=== PATIENT | male | born 1995 | race African-American/Black ===

== ENCOUNTER 2019-12-29 11:16 | Inpatient (IN) | payer MEDICAID ==
[~2019-12-29] VITALS: Ht 188 cm; Wt 84.8 kg
[2019-12-29 11:51] LABS: BASOPHILS % (AUTO) 1.3 % (0.0-2.0); EOSINOPHILS % (AUTO) 2.7 % (1.0-6.0); HEMATOCRIT 37.9 % (41-53); HEMOGLOBIN 12.4 g/dL (13.5-17.5); LYMPHOCYTES # (AUTO) 2.4 K/uL (1.0-4.8); LYMPHOCYTES % (AUTO) 40.1 % (22.0-44.0); MEAN CORPUSCULAR HEMOGLOBIN 31.1 pg (26.0-34.0); MEAN CORPUSCULAR HGB CONC 32.6 G/dL (31.0-37.0); MEAN CORPUSCULAR VOLUME 95 fL (80-100); MONOCYTES # (AUTO) 0.4 K/uL (0.1-1.0); MONOCYTES % (AUTO) 6.3 % (2.0-9.0); NEUTROPHILS % (AUTO) 49.6 % (40.0-70.0); PLATELET COUNT (AUTO) 646 K/uL (150-450); RED BLOOD CELL COUNT(AUTO) 3.99 MIL/uL (4.50-5.90); RED CELL DISTRIBUTION WIDTH 13.9 % (11.5-14.5)
[2019-12-29 12:11] LABS: ANION GAP 9 mmol/L (8-16); CARBON DIOXIDE 25 mmol/L (22-29); CHLORIDE 103 mmol/L (98-107); GLUCOSE,RANDOM 74 mg/dL (70-110); POTASSIUM 3.3 mmol/L (3.5-5.1); SODIUM SERUM 137 mmol/L (136-145); UREA NITROGEN, BLOOD 20 mg/dL (7-18)
[2019-12-29 12:12] LABS: GLOMERULAR FILTR. RATE CALC > 60 mL/min (>60)
[2019-12-29 12:13] LABS: AMMONIA < 10 umol/L (11-32); TROPONIN I < 0.02 ng/mL (0.00-0.05)
[2019-12-29 12:34] LABS: ALANINE AMINOTRANSFERASE 31 U/L (12-78); ALBUMIN 2.9 g/dL (3.4-5.0); ALKALINE PHOSPHATASE 122 U/L (46-116); ASPARTATE AMINOTRANSFERASE 28 U/L (15-37); BILIRUBIN,TOTAL 0.2 mg/dL (0.1-1.0); CREATINE KINASE, TOTAL ONLY 409 U/L (39-308); TOTAL PROTEIN, SERUM 7.9 g/dL (6.4-8.2)
[2019-12-29 12:35] LABS: ACETAMINOPHEN < 2 mcg/mL (10-30)
[2019-12-29 13:56] LABS: APPEARANCE,URINE CLOUDY (CLEAR); BILIRUBIN,URINE NEGATIVE (NEGATIVE); GLUCOSE, URINE (UA) NEGATIVE (NEGATIVE); KETONES,URINE NEGATIVE (NEGATIVE); LEUKOCYTE ESTERASE ,URINE NEGATIVE (NEGATIVE); NITRATE,URINE NEGATIVE (NEGATIVE); OCCULT BLOOD,URINE NEGATIVE (NEGATIVE); PROTEIN,URINE NEGATIVE (NEGATIVE)
[2019-12-29 14:01] LABS: AMPHET/METH SCREEN,URINE POSITIVE (NEGATIVE); BARBITURATE SCREEN, URINE NEGATIVE (NEGATIVE); BENZODIAZEPINES SCREEN,URINE NEGATIVE (NEGATIVE); CANNABINOID SCREEN,URINE NEGATIVE (NEGATIVE); COCAINE SCREEN,URINE NEGATIVE (NEGATIVE); METHADONE SCREEN, URINE NEGATIVE (NEGATIVE); OPIATE SCREEN,URINE NEGATIVE (NEGATIVE)
[2019-12-29 14:03] LABS: BACTERIA,URINE None Seen /HPF (None Seen); PHENCYCLIDINE SCREEN,URINE NEGATIVE (NEGATIVE); RBC,URINE 0-2 /HPF (0-2); WBC,URINE 0-2 /HPF (0-5)
[2019-12-29] MEDS ORDERED: POTASSIUM CHLORIDE 20 MEQ ER TABLET PO ONE (14:15)
[2019-12-29 20:00] VITALS: BP 132/80
[2019-12-30 02:07] VITALS: BP 128/82
[2019-12-30 04:30] VITALS: BP 122/79
[2019-12-30] MEDS ORDERED: ALBUTEROL SULFATE HFA 90 MCG/PUFF 8 GM INHALER IH PRN (08:00)
[2019-12-30] MEDS ORDERED: NICOTINE 14 MG/24 HOUR PATCH TD PRN (08:00)
[2019-12-30] MEDS ORDERED: LOPERAMIDE HCL 2 MG CAPSULE PO PRN (08:00)
[2019-12-30] MEDS ORDERED: ONDANSETRON HCL 4 MG TABLET PO PRN (08:00)
[2019-12-30] MEDS ORDERED: MAG HYDROX/AL HYDROX/SIMETH ES 30 ML SUSPENSION UDCUP PO PRN (08:00)
[2019-12-30] MEDS ORDERED: PETROLATUM,WHITE 28 GM JELLY TP PRN (08:00)
[2019-12-30] MEDS ORDERED: DOCUSATE SODIUM 100 MG CAPSULE PO PRN (08:00)
[2019-12-30] MEDS ORDERED: IBUPROFEN 400 MG TABLET PO PRN (08:00)
[2019-12-30] MEDS ORDERED: ACETAMINOPHEN 325 MG TABLET PO PRN (08:00)
[2019-12-30] MEDS ORDERED: MAGNESIUM HYDROXIDE SUSPENSION 30 ML UDCUP PO PRN (08:00)
[2019-12-30] MEDS ORDERED: GuaiFENesin/D-METHORPHAN [SUGAR-FREE] 200-20MG/10 ML SYRUP UDCUP PO PRN (08:00)
[2019-12-30] MEDS ORDERED: CloNIDine HCL 0.1 MG TABLET PO PRN (08:00)
[2019-12-30 08:05] VITALS: BP 131/84
[2019-12-30 08:51] LABS: BASOPHILS % (AUTO) 0.9 % (0.0-2.0); EOSINOPHILS % (AUTO) 1.9 % (1.0-6.0); HEMATOCRIT 37.9 % (41-53); HEMOGLOBIN 12.6 g/dL (13.5-17.5); LYMPHOCYTES # (AUTO) 1.4 K/uL (1.0-4.8); LYMPHOCYTES % (AUTO) 33.4 % (22.0-44.0); MEAN CORPUSCULAR HEMOGLOBIN 31.7 pg (26.0-34.0); MEAN CORPUSCULAR HGB CONC 33.3 G/dL (31.0-37.0); MEAN CORPUSCULAR VOLUME 95 fL (80-100); MONOCYTES # (AUTO) 0.2 K/uL (0.1-1.0); NEUTROPHILS # (AUTO) 2.5 K/uL (1.8-7.7); NEUTROPHILS % (AUTO) 58.8 % (40.0-70.0); PLATELET COUNT (AUTO) 669 K/uL (150-450); RED BLOOD CELL COUNT(AUTO) 3.99 MIL/uL (4.50-5.90); RED CELL DISTRIBUTION WIDTH 13.8 % (11.5-14.5)
[2019-12-30 09:17] LABS: ALANINE AMINOTRANSFERASE 33 U/L (12-78); ALBUMIN 2.8 g/dL (3.4-5.0); ALKALINE PHOSPHATASE 113 U/L (46-116); ANION GAP 4 mmol/L (8-16); ASPARTATE AMINOTRANSFERASE 24 U/L (15-37); BILIRUBIN,TOTAL 0.4 mg/dL (0.1-1.0); CALCIUM, TOTAL 9.5 mg/dL (8.8-10.5); CARBON DIOXIDE 29 mmol/L (22-29); CHLORIDE 101 mmol/L (98-107); CHOL/HDL RATIO 2.8 (4.2-7.3); CHOLESTEROL 137 mg/dL (131-200); CREATININE 0.81 mg/dL (0.60-1.30); FREE T4 (FREE THYROXINE) 1.03 ng/dL (0.76-1.46); GLOMERULAR FILTR. RATE CALC > 60 mL/min (>60); GLUCOSE,RANDOM 91 mg/dL (70-110); HDL CHOLESTEROL 49 mg/dL (40-60); LDL CHOL (CALC.) 79 mg/dL (0-130); SODIUM SERUM 134 mmol/L (136-145); TRIGLYCERIDES 46 mg/dL (15-150); UREA NITROGEN, BLOOD 17 mg/dL (7-18)
[2019-12-30 17:09] VITALS: BP 132/82
[2019-12-30] MEDS: OLANZapine 10 MG TABLET PO SCH (20:25)
[2019-12-31 04:26] VITALS: BP 130/72
[2019-12-31 08:12] VITALS: BP 120/67
[2019-12-31] MEDS: OLANZapine 10 MG TABLET PO SCH ×2 (08:34→20:12)
[2019-12-31] MEDS: ASPIRIN 81 MG EC TABLET PO SCH (08:34)
[2019-12-31 16:06] VITALS: BP 128/68
[2019-12-31] MEDS: MUPIROCIN CALCIUM 2% 22 GM OINTMENT NASAL SCH (19:22)
[2020-01-01 04:12] VITALS: BP 122/68
[2020-01-01 04:58] VITALS: BP 117/72
[2020-01-01 08:18] VITALS: BP 112/67
[2020-01-01] MEDS: MUPIROCIN CALCIUM 2% 22 GM OINTMENT NASAL SCH ×2 (08:26→16:46)
[2020-01-01] MEDS: OLANZapine 10 MG TABLET PO SCH ×2 (08:26→20:48)
[2020-01-01] MEDS: ASPIRIN 81 MG EC TABLET PO SCH (08:26)
[2020-01-01] MEDS: LORazepam 2 MG TABLET PO PRN ×2 (09:41→16:46)
[2020-01-01 16:09] VITALS: BP 106/66
[2020-01-01] MEDS: ZOLPIDEM TARTRATE 10 MG TABLET PO PRN (20:48)
[2020-01-02 08:29] VITALS: BP 134/67
[2020-01-02] MEDS: ASPIRIN 81 MG EC TABLET PO SCH (09:48)
[2020-01-02] MEDS: OLANZapine 10 MG TABLET PO SCH ×2 (09:48→20:24)
[2020-01-02] MEDS: MUPIROCIN CALCIUM 2% 22 GM OINTMENT NASAL SCH ×2 (09:49→17:00)
[2020-01-02 16:11] VITALS: BP 138/87
[2020-01-03 01:30] VITALS: BP 102/71
[2020-01-03 08:29] VITALS: BP 130/69
[2020-01-03] MEDS: FOLIC ACID 1 MG TABLET PO SCH (09:19)
[2020-01-03] MEDS: OLANZapine 10 MG TABLET PO SCH ×2 (09:19→20:52)
[2020-01-03] MEDS: MUPIROCIN CALCIUM 2% 22 GM OINTMENT NASAL SCH ×2 (09:19→17:14)
[2020-01-03] MEDS: MULTIVITAMINS WITH MINERALS, THERAPEUTIC TABLET PO SCH (09:19)
[2020-01-03] MEDS: THIAMINE 100 MG TABLET PO SCH (09:19)
[2020-01-03] MEDS: ASPIRIN 81 MG EC TABLET PO SCH (09:19)
[2020-01-03 16:06] VITALS: BP 130/75
[2020-01-04 00:40] VITALS: BP 122/78
[2020-01-04] MEDS: ASPIRIN 81 MG EC TABLET PO SCH (08:54)
[2020-01-04] MEDS: FOLIC ACID 1 MG TABLET PO SCH (08:54)
[2020-01-04] MEDS: THIAMINE 100 MG TABLET PO SCH (08:54)
[2020-01-04] MEDS: OLANZapine 10 MG TABLET PO SCH ×2 (08:55→20:24)
[2020-01-04] MEDS: MULTIVITAMINS WITH MINERALS, THERAPEUTIC TABLET PO SCH (08:55)
[2020-01-04] MEDS: MUPIROCIN CALCIUM 2% 22 GM OINTMENT NASAL SCH ×2 (08:56→16:27)
[2020-01-04 12:59] VITALS: BP 125/75
[2020-01-04 16:09] VITALS: BP 123/66
[2020-01-04] MEDS: LORazepam 2 MG TABLET PO PRN (16:27)
[2020-01-05] MEDS: MULTIVITAMINS WITH MINERALS, THERAPEUTIC TABLET PO SCH (08:46)
[2020-01-05] MEDS: ASPIRIN 81 MG EC TABLET PO SCH (08:46)
[2020-01-05] MEDS: THIAMINE 100 MG TABLET PO SCH (08:46)
[2020-01-05] MEDS: OLANZapine 10 MG TABLET PO SCH ×2 (08:46→20:22)
[2020-01-05] MEDS: FOLIC ACID 1 MG TABLET PO SCH (08:47)
[2020-01-05] MEDS: MUPIROCIN CALCIUM 2% 22 GM OINTMENT NASAL SCH ×2 (08:48→16:36)
[2020-01-05 10:28] VITALS: BP 137/87
[2020-01-05 16:00] VITALS: BP 128/78
[2020-01-05] MEDS: LORazepam 2 MG TABLET PO PRN (16:36)
[2020-01-06 00:04] VITALS: BP 141/75
[2020-01-06] MEDS: OLANZapine 10 MG TABLET PO SCH ×2 (08:04→21:04)
[2020-01-06] MEDS: MULTIVITAMINS WITH MINERALS, THERAPEUTIC TABLET PO SCH (08:04)
[2020-01-06] MEDS: ASPIRIN 81 MG EC TABLET PO SCH (08:04)
[2020-01-06] MEDS: FOLIC ACID 1 MG TABLET PO SCH (08:05)
[2020-01-06] MEDS: THIAMINE 100 MG TABLET PO SCH (08:05)
[2020-01-06 08:43] VITALS: BP 109/75
[2020-01-06] MEDS: LORazepam 2 MG TABLET PO PRN (15:52)
[2020-01-06 16:08] VITALS: BP 122/63
[2020-01-07 00:37] VITALS: BP 109/66
[2020-01-07] MEDS: ASPIRIN 81 MG EC TABLET PO SCH (08:35)
[2020-01-07] MEDS: OLANZapine 10 MG TABLET PO SCH ×2 (08:35→21:49)
[2020-01-07] MEDS: LORazepam 2 MG TABLET PO PRN (08:35)
[2020-01-07] MEDS: MULTIVITAMINS WITH MINERALS, THERAPEUTIC TABLET PO SCH (08:35)
[2020-01-07] MEDS: FOLIC ACID 1 MG TABLET PO SCH (08:35)
[2020-01-07] MEDS: THIAMINE 100 MG TABLET PO SCH (08:35)
[2020-01-07 08:55] VITALS: BP 97/60
[2020-01-07 16:10] VITALS: BP 102/76
[2020-01-08 01:22] VITALS: BP 124/68
[2020-01-08 08:25] VITALS: BP 120/67
[2020-01-08] MEDS: OLANZapine 10 MG TABLET PO SCH ×2 (09:23→20:14)
[2020-01-08] MEDS: FOLIC ACID 1 MG TABLET PO SCH (09:23)
[2020-01-08] MEDS: ASPIRIN 81 MG EC TABLET PO SCH (09:24)
[2020-01-08] MEDS: THIAMINE 100 MG TABLET PO SCH (09:24)
[2020-01-08] MEDS: MULTIVITAMINS WITH MINERALS, THERAPEUTIC TABLET PO SCH (09:24)
[2020-01-08 16:10] VITALS: BP 110/65
[2020-01-08] MEDS: LORazepam 2 MG TABLET PO PRN (20:14)
[2020-01-08] MEDS: ZOLPIDEM TARTRATE 10 MG TABLET PO PRN (20:14)
[2020-01-09 04:27] VITALS: BP 115/64
[2020-01-09 08:19] VITALS: BP 122/64
[2020-01-09] MEDS: FOLIC ACID 1 MG TABLET PO SCH (09:03)
[2020-01-09] MEDS: ASPIRIN 81 MG EC TABLET PO SCH (09:03)
[2020-01-09] MEDS: MULTIVITAMINS WITH MINERALS, THERAPEUTIC TABLET PO SCH (09:03)
[2020-01-09] MEDS: THIAMINE 100 MG TABLET PO SCH (09:03)
[2020-01-09] MEDS: OLANZapine 10 MG TABLET PO SCH ×2 (09:03→20:41)
[2020-01-09 16:00] VITALS: BP 134/82
[2020-01-09] MEDS: LORazepam 2 MG TABLET PO PRN (16:39)
[2020-01-10 04:04] VITALS: BP 124/62
[2020-01-10 08:16] VITALS: BP 118/62
[2020-01-10] MEDS: FOLIC ACID 1 MG TABLET PO SCH (08:56)
[2020-01-10] MEDS: MULTIVITAMINS WITH MINERALS, THERAPEUTIC TABLET PO SCH (08:56)
[2020-01-10] MEDS: ASPIRIN 81 MG EC TABLET PO SCH (08:56)
[2020-01-10] MEDS: OLANZapine 10 MG TABLET PO SCH ×2 (08:56→20:45)
[2020-01-10] MEDS: THIAMINE 100 MG TABLET PO SCH (08:56)
[2020-01-10 16:14] VITALS: BP 116/74
[2020-01-10] MEDS: LORazepam 2 MG TABLET PO PRN (16:39)
[2020-01-11 01:44] VITALS: BP 114/62
[2020-01-11 08:30] VITALS: BP 153/98
[2020-01-11] MEDS: OLANZapine 10 MG TABLET PO SCH ×2 (08:57→20:25)
[2020-01-11] MEDS: FOLIC ACID 1 MG TABLET PO SCH (08:57)
[2020-01-11] MEDS: ASPIRIN 81 MG EC TABLET PO SCH (08:58)
[2020-01-11] MEDS: THIAMINE 100 MG TABLET PO SCH (08:58)
[2020-01-11] MEDS: MULTIVITAMINS WITH MINERALS, THERAPEUTIC TABLET PO SCH (08:58)
[2020-01-11 16:14] VITALS: BP 100/60
[2020-01-11] MEDS: LORazepam 2 MG TABLET PO PRN (16:26)
[2020-01-12 04:10] VITALS: BP 123/78
[2020-01-12 08:15] VITALS: BP 114/81
[2020-01-12] MEDS: OLANZapine 10 MG TABLET PO SCH ×2 (08:15→20:32)
[2020-01-12] MEDS: THIAMINE 100 MG TABLET PO SCH (08:15)
[2020-01-12] MEDS: FOLIC ACID 1 MG TABLET PO SCH (08:15)
[2020-01-12] MEDS: MULTIVITAMINS WITH MINERALS, THERAPEUTIC TABLET PO SCH (08:16)
[2020-01-12] MEDS: ASPIRIN 81 MG EC TABLET PO SCH (08:16)
[2020-01-12 16:17] VITALS: BP 131/64
[2020-01-13 05:02] VITALS: BP 123/67
[2020-01-13 08:22] VITALS: BP 125/72
[2020-01-13] MEDS: FOLIC ACID 1 MG TABLET PO SCH (08:42)
[2020-01-13] MEDS: THIAMINE 100 MG TABLET PO SCH (08:42)
[2020-01-13] MEDS: OLANZapine 10 MG TABLET PO SCH ×2 (08:42→20:12)
[2020-01-13] MEDS: MULTIVITAMINS WITH MINERALS, THERAPEUTIC TABLET PO SCH (08:42)
[2020-01-13] MEDS: ASPIRIN 81 MG EC TABLET PO SCH (08:42)
[2020-01-13 16:18] VITALS: BP 112/68
[2020-01-13] MEDS: LORazepam 2 MG TABLET PO PRN (16:49)
[2020-01-14 01:51] VITALS: BP 107/62
[2020-01-14] MEDS: MULTIVITAMINS WITH MINERALS, THERAPEUTIC TABLET PO SCH (08:14)
[2020-01-14] MEDS: FOLIC ACID 1 MG TABLET PO SCH (08:14)
[2020-01-14] MEDS: THIAMINE 100 MG TABLET PO SCH (08:14)
[2020-01-14] MEDS: OLANZapine 10 MG TABLET PO SCH ×2 (08:14→20:18)
[2020-01-14] MEDS: ASPIRIN 81 MG EC TABLET PO SCH (08:15)
[2020-01-14] MEDS: LORazepam 2 MG TABLET PO PRN ×2 (08:24→16:01)
[2020-01-14 09:35] VITALS: BP 113/79
[2020-01-14 16:35] VITALS: BP 131/72
[2020-01-14] MEDS: ZOLPIDEM TARTRATE 10 MG TABLET PO PRN (20:18)
[2020-01-15 04:45] VITALS: BP 111/77
[2020-01-15] MEDS: OLANZapine 10 MG TABLET PO SCH ×2 (08:14→20:26)
[2020-01-15] MEDS: MULTIVITAMINS WITH MINERALS, THERAPEUTIC TABLET PO SCH (08:14)
[2020-01-15] MEDS: FOLIC ACID 1 MG TABLET PO SCH (08:14)
[2020-01-15] MEDS: ASPIRIN 81 MG EC TABLET PO SCH (08:14)
[2020-01-15] MEDS: THIAMINE 100 MG TABLET PO SCH (08:15)
[2020-01-15 08:21] VITALS: BP 76/116
[2020-01-15 16:11] VITALS: BP 136/70
[2020-01-15] MEDS: ZOLPIDEM TARTRATE 10 MG TABLET PO PRN (20:26)
[2020-01-16 01:25] VITALS: BP 114/77
[2020-01-16] MEDS: ASPIRIN 81 MG EC TABLET PO SCH (08:25)
[2020-01-16] MEDS: THIAMINE 100 MG TABLET PO SCH (08:25)
[2020-01-16] MEDS: MULTIVITAMINS WITH MINERALS, THERAPEUTIC TABLET PO SCH (08:25)
[2020-01-16] MEDS: FOLIC ACID 1 MG TABLET PO SCH (08:25)
[2020-01-16] MEDS: OLANZapine 10 MG TABLET PO SCH ×2 (08:25→21:08)
[2020-01-16 09:00] VITALS: BP 143/92
[2020-01-16 16:15] VITALS: BP 127/71
[2020-01-16] MEDS: ZOLPIDEM TARTRATE 10 MG TABLET PO PRN (21:08)
[2020-01-17 03:01] VITALS: BP 102/63
[2020-01-17 08:13] VITALS: BP 114/66
[2020-01-17] MEDS: ASPIRIN 81 MG EC TABLET PO SCH (08:23)
[2020-01-17] MEDS: OLANZapine 10 MG TABLET PO SCH ×2 (08:23→20:49)
[2020-01-17] MEDS: FOLIC ACID 1 MG TABLET PO SCH (08:23)
[2020-01-17] MEDS: THIAMINE 100 MG TABLET PO SCH (08:24)
[2020-01-17] MEDS: MULTIVITAMINS WITH MINERALS, THERAPEUTIC TABLET PO SCH (08:24)
[2020-01-17 16:15] VITALS: BP 115/97
[2020-01-17] MEDS: ZOLPIDEM TARTRATE 10 MG TABLET PO PRN (20:53)
[2020-01-18 04:24] VITALS: BP 124/76
[2020-01-18 08:19] VITALS: BP 125/72
[2020-01-18] MEDS: THIAMINE 100 MG TABLET PO SCH (08:24)
[2020-01-18] MEDS: MULTIVITAMINS WITH MINERALS, THERAPEUTIC TABLET PO SCH (08:25)
[2020-01-18] MEDS: OLANZapine 10 MG TABLET PO SCH ×2 (08:25→20:57)
[2020-01-18] MEDS: ASPIRIN 81 MG EC TABLET PO SCH (08:25)
[2020-01-18] MEDS: FOLIC ACID 1 MG TABLET PO SCH (08:25)
[2020-01-18 16:12] VITALS: BP 108/66
[2020-01-18] MEDS: ZOLPIDEM TARTRATE 10 MG TABLET PO PRN (21:10)
[2020-01-19 03:36] VITALS: BP 102/63
[2020-01-19 08:31] VITALS: BP 120/72
[2020-01-19] MEDS: ASPIRIN 81 MG EC TABLET PO SCH (08:42)
[2020-01-19] MEDS: THIAMINE 100 MG TABLET PO SCH (08:42)
[2020-01-19] MEDS: MULTIVITAMINS WITH MINERALS, THERAPEUTIC TABLET PO SCH (08:42)
[2020-01-19] MEDS: FOLIC ACID 1 MG TABLET PO SCH (08:42)
[2020-01-19] MEDS: OLANZapine 10 MG TABLET PO SCH ×2 (08:42→20:32)
[2020-01-19 16:10] VITALS: BP 106/68
[2020-01-20 02:21] VITALS: BP 122/79
[2020-01-20] MEDS: THIAMINE 100 MG TABLET PO SCH (08:08)
[2020-01-20] MEDS: FOLIC ACID 1 MG TABLET PO SCH (08:08)
[2020-01-20] MEDS: OLANZapine 10 MG TABLET PO SCH ×2 (08:08→20:41)
[2020-01-20] MEDS: MULTIVITAMINS WITH MINERALS, THERAPEUTIC TABLET PO SCH (08:08)
[2020-01-20] MEDS: ASPIRIN 81 MG EC TABLET PO SCH (08:09)
[2020-01-20 08:33] VITALS: BP 135/78
[2020-01-20 16:13] VITALS: BP 132/68
[2020-01-20] MEDS: ZOLPIDEM TARTRATE 10 MG TABLET PO PRN (20:41)
[2020-01-21 00:51] VITALS: BP 124/64
[2020-01-21] MEDS: THIAMINE 100 MG TABLET PO SCH (08:17)
[2020-01-21] MEDS: ASPIRIN 81 MG EC TABLET PO SCH (08:17)
[2020-01-21] MEDS: FOLIC ACID 1 MG TABLET PO SCH (08:17)
[2020-01-21] MEDS: MULTIVITAMINS WITH MINERALS, THERAPEUTIC TABLET PO SCH (08:17)
[2020-01-21] MEDS: OLANZapine 10 MG TABLET PO SCH ×2 (08:17→20:51)
[2020-01-21 08:40] VITALS: BP 131/82
[2020-01-21 16:14] VITALS: BP 132/78
[2020-01-21] MEDS: LORazepam 2 MG TABLET PO PRN (17:19)
[2020-01-21] MEDS: ZOLPIDEM TARTRATE 10 MG TABLET PO PRN (20:51)
[2020-01-22 00:45] VITALS: BP 120/65
[2020-01-22 08:30] VITALS: BP 110/60
[2020-01-22] MEDS: ASPIRIN 81 MG EC TABLET PO SCH (08:43)
[2020-01-22] MEDS: FOLIC ACID 1 MG TABLET PO SCH (08:43)
[2020-01-22] MEDS: MULTIVITAMINS WITH MINERALS, THERAPEUTIC TABLET PO SCH (08:43)
[2020-01-22] MEDS: OLANZapine 10 MG TABLET PO SCH ×2 (08:43→20:38)
[2020-01-22] MEDS: THIAMINE 100 MG TABLET PO SCH (08:44)
[2020-01-22 16:24] VITALS: BP 111/66
[2020-01-22] MEDS: LORazepam 2 MG TABLET PO PRN (16:46)
[2020-01-23 03:49] VITALS: BP 105/67
[2020-01-23] MEDS: THIAMINE 100 MG TABLET PO SCH (08:22)
[2020-01-23] MEDS: ASPIRIN 81 MG EC TABLET PO SCH (08:22)
[2020-01-23] MEDS: FOLIC ACID 1 MG TABLET PO SCH (08:22)
[2020-01-23] MEDS: MULTIVITAMINS WITH MINERALS, THERAPEUTIC TABLET PO SCH (08:22)
[2020-01-23] MEDS: OLANZapine 10 MG TABLET PO SCH ×2 (08:22→20:12)
[2020-01-23 08:24] VITALS: BP 134/70
[2020-01-23] MEDS: LORazepam 2 MG TABLET PO PRN ×2 (14:25→18:26)
[2020-01-23] MEDS: HALOPERIDOL 5 MG TABLET PO PRN (14:25)
[2020-01-23 16:24] VITALS: BP 131/75
[2020-01-23 19:30] VITALS: BP 95/56
[2020-01-24 04:29] VITALS: BP 129/73
[2020-01-24 08:40] VITALS: BP 95/56
[2020-01-24] MEDS: OLANZapine 10 MG TABLET PO SCH ×2 (09:04→20:18)
[2020-01-24] MEDS: FOLIC ACID 1 MG TABLET PO SCH (09:04)
[2020-01-24] MEDS: MULTIVITAMINS WITH MINERALS, THERAPEUTIC TABLET PO SCH (09:04)
[2020-01-24] MEDS: ASPIRIN 81 MG EC TABLET PO SCH (09:04)
[2020-01-24] MEDS: THIAMINE 100 MG TABLET PO SCH (09:04)
[2020-01-24] MEDS: LORazepam 2 MG TABLET PO PRN ×2 (14:39→20:18)
[2020-01-24 16:17] VITALS: BP 112/69
[2020-01-24] MEDS: ZOLPIDEM TARTRATE 10 MG TABLET PO PRN (21:16)
[2020-01-25 00:15] VITALS: BP 107/68
[2020-01-25] MEDS: LORazepam 2 MG TABLET PO PRN ×3 (03:58→16:34)
[2020-01-25] MEDS: HALOPERIDOL 5 MG TABLET PO PRN (06:28)
[2020-01-25] MEDS: OLANZapine 10 MG TABLET PO SCH ×2 (08:31→20:49)
[2020-01-25] MEDS: MULTIVITAMINS WITH MINERALS, THERAPEUTIC TABLET PO SCH (08:31)
[2020-01-25] MEDS: FOLIC ACID 1 MG TABLET PO SCH (08:32)
[2020-01-25] MEDS: ASPIRIN 81 MG EC TABLET PO SCH (08:32)
[2020-01-25] MEDS: THIAMINE 100 MG TABLET PO SCH (08:33)
[2020-01-25 09:00] VITALS: BP 98/69
[2020-01-25] MEDS ORDERED: TUBERCULIN, PURIFIED PROTEIN DERIVATIVE 5 TU/0.1 ML SYRINGE ID ONE (13:00)
[2020-01-25 16:00] VITALS: BP 123/85
[2020-01-25] MEDS: ZOLPIDEM TARTRATE 10 MG TABLET PO PRN (20:49)
[2020-01-26 01:55] VITALS: BP 137/56
[2020-01-26] MEDS: ASPIRIN 81 MG EC TABLET PO SCH (08:11)
[2020-01-26] MEDS: THIAMINE 100 MG TABLET PO SCH (08:11)
[2020-01-26] MEDS: FOLIC ACID 1 MG TABLET PO SCH (08:11)
[2020-01-26] MEDS: MULTIVITAMINS WITH MINERALS, THERAPEUTIC TABLET PO SCH (08:11)
[2020-01-26] MEDS: OLANZapine 10 MG TABLET PO SCH ×2 (08:11→20:33)
[2020-01-26] MEDS: LORazepam 2 MG TABLET PO PRN ×2 (08:13→17:48)
[2020-01-26 08:14] VITALS: BP 128/76
[2020-01-26 16:24] VITALS: BP 126/68
[2020-01-27 00:11] VITALS: BP 117/77
[2020-01-27] MEDS: ZOLPIDEM TARTRATE 10 MG TABLET PO PRN ×2 (00:22→21:43)
[2020-01-27 08:14] VITALS: BP 132/80
[2020-01-27] MEDS: OLANZapine 10 MG TABLET PO SCH ×2 (08:15→20:03)
[2020-01-27] MEDS: LORazepam 2 MG TABLET PO PRN ×3 (08:15→18:04)
[2020-01-27] MEDS: FOLIC ACID 1 MG TABLET PO SCH (08:15)
[2020-01-27] MEDS: MULTIVITAMINS WITH MINERALS, THERAPEUTIC TABLET PO SCH (08:15)
[2020-01-27] MEDS: THIAMINE 100 MG TABLET PO SCH (08:15)
[2020-01-27] MEDS: ASPIRIN 81 MG EC TABLET PO SCH (08:15)
[2020-01-27 16:19] VITALS: BP 117/70
[2020-01-28 05:24] VITALS: BP 127/84
[2020-01-28 08:14] VITALS: BP 114/67
[2020-01-28] MEDS: THIAMINE 100 MG TABLET PO SCH (08:25)
[2020-01-28] MEDS: LORazepam 2 MG TABLET PO PRN ×2 (08:25→15:49)
[2020-01-28] MEDS: ASPIRIN 81 MG EC TABLET PO SCH (08:25)
[2020-01-28] MEDS: OLANZapine 10 MG TABLET PO SCH ×2 (08:25→20:08)
[2020-01-28] MEDS: FOLIC ACID 1 MG TABLET PO SCH (08:25)
[2020-01-28] MEDS: MULTIVITAMINS WITH MINERALS, THERAPEUTIC TABLET PO SCH (08:25)
[2020-01-28 16:15] VITALS: BP 130/84
[2020-01-29 04:40] VITALS: BP 110/72
[2020-01-29 08:21] VITALS: BP 129/67
[2020-01-29] MEDS: MULTIVITAMINS WITH MINERALS, THERAPEUTIC TABLET PO SCH (08:38)
[2020-01-29] MEDS: THIAMINE 100 MG TABLET PO SCH (08:38)
[2020-01-29] MEDS: FOLIC ACID 1 MG TABLET PO SCH (08:38)
[2020-01-29] MEDS: OLANZapine 10 MG TABLET PO SCH ×2 (08:38→20:43)
[2020-01-29] MEDS: ASPIRIN 81 MG EC TABLET PO SCH (08:38)
[2020-01-29] MEDS: LORazepam 2 MG TABLET PO PRN (09:04)
[2020-01-29 16:08] VITALS: BP 106/63
[2020-01-30 00:08] VITALS: BP 101/63
[2020-01-30 08:22] VITALS: BP 117/90
[2020-01-30] MEDS: MULTIVITAMINS WITH MINERALS, THERAPEUTIC TABLET PO SCH (09:05)
[2020-01-30] MEDS: THIAMINE 100 MG TABLET PO SCH (09:05)
[2020-01-30] MEDS: FOLIC ACID 1 MG TABLET PO SCH (09:05)
[2020-01-30] MEDS: ASPIRIN 81 MG EC TABLET PO SCH (09:05)
[2020-01-30] MEDS: OLANZapine 10 MG TABLET PO SCH ×2 (09:05→20:33)
[2020-01-30] MEDS: LORazepam 2 MG TABLET PO PRN (14:08)
[2020-01-30 16:06] VITALS: BP 112/69
[2020-01-30] MEDS: ZOLPIDEM TARTRATE 10 MG TABLET PO PRN (20:57)
[2020-01-31 02:47] VITALS: BP 103/59
[2020-01-31 08:13] VITALS: BP 110/65
[2020-01-31] MEDS: OLANZapine 10 MG TABLET PO SCH ×2 (08:25→20:15)
[2020-01-31] MEDS: MULTIVITAMINS WITH MINERALS, THERAPEUTIC TABLET PO SCH (08:25)
[2020-01-31] MEDS: THIAMINE 100 MG TABLET PO SCH (08:25)
[2020-01-31] MEDS: LORazepam 2 MG TABLET PO PRN ×2 (08:26→15:08)
[2020-01-31] MEDS: FOLIC ACID 1 MG TABLET PO SCH (08:26)
[2020-01-31] MEDS: ASPIRIN 81 MG EC TABLET PO SCH (08:26)
[2020-01-31 16:06] VITALS: BP 110/68
[2020-01-31] MEDS: ZOLPIDEM TARTRATE 10 MG TABLET PO PRN (20:15)
[2020-02-01 01:41] VITALS: BP 114/61
[2020-02-01 08:20] VITALS: BP 110/78
[2020-02-01] MEDS: OLANZapine 10 MG TABLET PO SCH ×2 (08:28→20:34)
[2020-02-01] MEDS: ASPIRIN 81 MG EC TABLET PO SCH (08:28)
[2020-02-01] MEDS: MULTIVITAMINS WITH MINERALS, THERAPEUTIC TABLET PO SCH (08:29)
[2020-02-01] MEDS: THIAMINE 100 MG TABLET PO SCH (08:29)
[2020-02-01] MEDS: FOLIC ACID 1 MG TABLET PO SCH (08:29)
[2020-02-01 16:42] VITALS: BP 109/61
[2020-02-01] MEDS: LORazepam 2 MG TABLET PO PRN (16:43)
[2020-02-01] MEDS: ZOLPIDEM TARTRATE 10 MG TABLET PO PRN (20:34)
[2020-02-02 01:56] VITALS: BP 114/75
[2020-02-02] MEDS: MULTIVITAMINS WITH MINERALS, THERAPEUTIC TABLET PO SCH (08:05)
[2020-02-02] MEDS: FOLIC ACID 1 MG TABLET PO SCH (08:06)
[2020-02-02] MEDS: OLANZapine 10 MG TABLET PO SCH ×2 (08:06→20:27)
[2020-02-02] MEDS: THIAMINE 100 MG TABLET PO SCH (08:06)
[2020-02-02] MEDS: ASPIRIN 81 MG EC TABLET PO SCH (08:06)
[2020-02-02] MEDS: LORazepam 2 MG TABLET PO PRN ×2 (08:06→16:16)
[2020-02-02 08:08] VITALS: BP 113/73
[2020-02-02 16:10] VITALS: BP 122/76
[2020-02-02] MEDS: ZOLPIDEM TARTRATE 10 MG TABLET PO PRN (20:27)
[2020-02-03 00:31] VITALS: BP 106/73
[2020-02-03] MEDS: ASPIRIN 81 MG EC TABLET PO SCH (08:56)
[2020-02-03] MEDS: MULTIVITAMINS WITH MINERALS, THERAPEUTIC TABLET PO SCH (08:56)
[2020-02-03] MEDS: LORazepam 2 MG TABLET PO PRN ×2 (08:56→16:17)
[2020-02-03] MEDS: OLANZapine 10 MG TABLET PO SCH ×2 (08:56→20:18)
[2020-02-03] MEDS: FOLIC ACID 1 MG TABLET PO SCH (08:56)
[2020-02-03] MEDS: THIAMINE 100 MG TABLET PO SCH (08:56)
[2020-02-03 09:19] VITALS: BP 138/60
[2020-02-03 16:15] VITALS: BP 124/82
[2020-02-03] MEDS: HALOPERIDOL 5 MG TABLET PO PRN (19:12)
[2020-02-04 00:07] VITALS: BP 122/78
[2020-02-04] MEDS: FOLIC ACID 1 MG TABLET PO SCH (08:19)
[2020-02-04] MEDS: OLANZapine 10 MG TABLET PO SCH ×2 (08:19→20:02)
[2020-02-04] MEDS: MULTIVITAMINS WITH MINERALS, THERAPEUTIC TABLET PO SCH (08:20)
[2020-02-04] MEDS: ASPIRIN 81 MG EC TABLET PO SCH (08:20)
[2020-02-04] MEDS: LORazepam 2 MG TABLET PO PRN ×3 (08:20→18:36)
[2020-02-04] MEDS: THIAMINE 100 MG TABLET PO SCH (08:20)
[2020-02-04 08:22] VITALS: BP 140/72
[2020-02-04] MEDS ORDERED: HYDR-4031 PO (11:44)
[2020-02-04 16:13] VITALS: BP 122/80
[2020-02-04] MEDS: ZOLPIDEM TARTRATE 10 MG TABLET PO PRN (20:02)
[2020-02-05 00:14] VITALS: BP 120/78
[2020-02-05] MEDS: MULTIVITAMINS WITH MINERALS, THERAPEUTIC TABLET PO SCH (08:26)
[2020-02-05] MEDS: FOLIC ACID 1 MG TABLET PO SCH (08:26)
[2020-02-05] MEDS: OLANZapine 10 MG TABLET PO SCH ×2 (08:27→20:35)
[2020-02-05] MEDS: ASPIRIN 81 MG EC TABLET PO SCH (08:27)
[2020-02-05] MEDS: THIAMINE 100 MG TABLET PO SCH (08:27)
[2020-02-05] MEDS: LORazepam 2 MG TABLET PO PRN ×2 (08:27→16:24)
[2020-02-05 08:34] VITALS: BP 119/65
[2020-02-05 16:14] VITALS: BP 114/72
[2020-02-05] MEDS: HALOPERIDOL 5 MG TABLET PO PRN (16:24)
[2020-02-05] MEDS: ZOLPIDEM TARTRATE 10 MG TABLET PO PRN (20:39)
[2020-02-06 03:47] VITALS: BP 116/70
[2020-02-06] MEDS: ASPIRIN 81 MG EC TABLET PO SCH (08:36)
[2020-02-06] MEDS: FOLIC ACID 1 MG TABLET PO SCH (08:36)
[2020-02-06] MEDS: OLANZapine 10 MG TABLET PO SCH ×2 (08:36→20:46)
[2020-02-06] MEDS: THIAMINE 100 MG TABLET PO SCH (08:36)
[2020-02-06] MEDS: MULTIVITAMINS WITH MINERALS, THERAPEUTIC TABLET PO SCH (08:36)
[2020-02-06 09:00] VITALS: BP 106/71
[2020-02-06] MEDS: LORazepam 2 MG TABLET PO PRN ×2 (09:06→18:22)
[2020-02-06 16:22] VITALS: BP 124/76
[2020-02-06] MEDS: QUEtiapine FUMARATE 25 MG TABLET PO SCH (20:46)
[2020-02-07 03:00] VITALS: BP 108/61
[2020-02-07 08:00] VITALS: BP 111/68
[2020-02-07] MEDS: MULTIVITAMINS WITH MINERALS, THERAPEUTIC TABLET PO SCH (09:34)
[2020-02-07] MEDS: ASPIRIN 81 MG EC TABLET PO SCH (09:34)
[2020-02-07] MEDS: FOLIC ACID 1 MG TABLET PO SCH (09:34)
[2020-02-07] MEDS: THIAMINE 100 MG TABLET PO SCH (09:34)
[2020-02-07] MEDS: OLANZapine 10 MG TABLET PO SCH ×2 (09:34→20:51)
[2020-02-07] MEDS: LORazepam 2 MG TABLET PO PRN ×2 (13:41→18:18)
[2020-02-07 16:15] VITALS: BP 123/77
[2020-02-07] MEDS: QUEtiapine FUMARATE 25 MG TABLET PO SCH (20:51)
[2020-02-07] MEDS: ZOLPIDEM TARTRATE 10 MG TABLET PO PRN (20:51)
[2020-02-08 04:10] VITALS: BP 118/70
[2020-02-08 08:26] VITALS: BP 140/74
[2020-02-08] MEDS: FOLIC ACID 1 MG TABLET PO SCH (08:44)
[2020-02-08] MEDS: OLANZapine 10 MG TABLET PO SCH ×2 (08:44→20:36)
[2020-02-08] MEDS: ASPIRIN 81 MG EC TABLET PO SCH (08:44)
[2020-02-08] MEDS: MULTIVITAMINS WITH MINERALS, THERAPEUTIC TABLET PO SCH (08:44)
[2020-02-08] MEDS: THIAMINE 100 MG TABLET PO SCH (08:44)
[2020-02-08] MEDS: LORazepam 2 MG TABLET PO PRN (16:34)
[2020-02-08 16:42] VITALS: BP 132/64
[2020-02-08] MEDS: QUEtiapine FUMARATE 25 MG TABLET PO SCH (20:37)
[2020-02-08] MEDS: ZOLPIDEM TARTRATE 10 MG TABLET PO PRN (20:37)
[2020-02-09 00:33] VITALS: BP 130/73
[2020-02-09] MEDS: THIAMINE 100 MG TABLET PO SCH (08:05)
[2020-02-09] MEDS: FOLIC ACID 1 MG TABLET PO SCH (08:05)
[2020-02-09] MEDS: MULTIVITAMINS WITH MINERALS, THERAPEUTIC TABLET PO SCH (08:05)
[2020-02-09] MEDS: OLANZapine 10 MG TABLET PO SCH ×2 (08:05→20:54)
[2020-02-09] MEDS: ASPIRIN 81 MG EC TABLET PO SCH (08:05)
[2020-02-09] MEDS: LORazepam 2 MG TABLET PO PRN ×2 (08:05→20:57)
[2020-02-09 08:34] VITALS: BP 130/76
[2020-02-09 16:47] VITALS: BP 139/87
[2020-02-09] MEDS: QUEtiapine FUMARATE 25 MG TABLET PO SCH (20:54)
[2020-02-10 00:23] VITALS: BP 114/74
[2020-02-10] MEDS: ASPIRIN 81 MG EC TABLET PO SCH (08:03)
[2020-02-10] MEDS: LORazepam 2 MG TABLET PO PRN ×3 (08:03→20:24)
[2020-02-10] MEDS: THIAMINE 100 MG TABLET PO SCH (08:03)
[2020-02-10] MEDS: MULTIVITAMINS WITH MINERALS, THERAPEUTIC TABLET PO SCH (08:03)
[2020-02-10] MEDS: FOLIC ACID 1 MG TABLET PO SCH (08:03)
[2020-02-10] MEDS: OLANZapine 10 MG TABLET PO SCH ×2 (08:03→20:24)
[2020-02-10 08:38] VITALS: BP 118/69
[2020-02-10 16:20] VITALS: BP 120/64
[2020-02-10] MEDS: QUEtiapine FUMARATE 25 MG TABLET PO SCH (20:24)
[2020-02-10] MEDS: ZOLPIDEM TARTRATE 10 MG TABLET PO PRN (20:24)
[2020-02-11 00:16] VITALS: BP 125/68
[2020-02-11 08:38] VITALS: BP 121/74
[2020-02-11] MEDS: OLANZapine 10 MG TABLET PO SCH ×2 (08:59→20:27)
[2020-02-11] MEDS: MULTIVITAMINS WITH MINERALS, THERAPEUTIC TABLET PO SCH (08:59)
[2020-02-11] MEDS: THIAMINE 100 MG TABLET PO SCH (08:59)
[2020-02-11] MEDS: ASPIRIN 81 MG EC TABLET PO SCH (08:59)
[2020-02-11] MEDS: FOLIC ACID 1 MG TABLET PO SCH (08:59)
[2020-02-11] MEDS: LORazepam 2 MG TABLET PO PRN ×3 (09:40→20:27)
[2020-02-11 16:30] VITALS: BP 129/72
[2020-02-11] MEDS: ZOLPIDEM TARTRATE 10 MG TABLET PO PRN (20:27)
[2020-02-11] MEDS: QUEtiapine FUMARATE 25 MG TABLET PO SCH (20:27)
[2020-02-12 05:18] VITALS: BP 126/74
[2020-02-12] MEDS: MULTIVITAMINS WITH MINERALS, THERAPEUTIC TABLET PO SCH (08:19)
[2020-02-12] MEDS: FOLIC ACID 1 MG TABLET PO SCH (08:19)
[2020-02-12] MEDS: THIAMINE 100 MG TABLET PO SCH (08:19)
[2020-02-12] MEDS: OLANZapine 10 MG TABLET PO SCH ×2 (08:19→20:08)
[2020-02-12] MEDS: ASPIRIN 81 MG EC TABLET PO SCH (08:19)
[2020-02-12 08:30] VITALS: BP 100/72
[2020-02-12] MEDS: LORazepam 2 MG TABLET PO PRN ×2 (13:21→18:55)
[2020-02-12 16:07] VITALS: BP 132/69
[2020-02-12] MEDS: HALOPERIDOL 5 MG TABLET PO PRN (18:55)
[2020-02-12] MEDS: QUEtiapine FUMARATE 25 MG TABLET PO SCH (20:08)
[2020-02-13 00:28] VITALS: BP 108/61
[2020-02-13] MEDS: OLANZapine 10 MG TABLET PO SCH ×2 (08:08→20:06)
[2020-02-13] MEDS: MULTIVITAMINS WITH MINERALS, THERAPEUTIC TABLET PO SCH (08:08)
[2020-02-13] MEDS: LORazepam 2 MG TABLET PO PRN ×2 (08:09→18:23)
[2020-02-13] MEDS: THIAMINE 100 MG TABLET PO SCH (08:09)
[2020-02-13] MEDS: FOLIC ACID 1 MG TABLET PO SCH (08:09)
[2020-02-13] MEDS: ASPIRIN 81 MG EC TABLET PO SCH (08:09)
[2020-02-13 08:39] VITALS: BP 120/71
[2020-02-13 16:56] VITALS: BP 119/73
[2020-02-13] MEDS: ZOLPIDEM TARTRATE 10 MG TABLET PO PRN (20:06)
[2020-02-13] MEDS: QUEtiapine FUMARATE 25 MG TABLET PO SCH (20:06)
[2020-02-14 04:21] VITALS: BP 122/65
[2020-02-14 07:34] LABS: COVID AG,FIA SOURCE NASAL SWAB
[2020-02-14 07:52] LABS: BASOPHILS % (AUTO) 0.7 % (0.0-2.0); EOSINOPHILS % (AUTO) 2.2 % (1.0-6.0); HEMATOCRIT 44.7 % (41-53); HEMOGLOBIN 14.8 g/dL (13.5-17.5); LYMPHOCYTES # (AUTO) 2.1 K/uL (1.0-4.8); LYMPHOCYTES % (AUTO) 32.7 % (22.0-44.0); MEAN CORPUSCULAR HEMOGLOBIN 31.2 pg (26.0-34.0); MEAN CORPUSCULAR HGB CONC 33.2 G/dL (31.0-37.0); MEAN CORPUSCULAR VOLUME 94 fL (80-100); MONOCYTES # (AUTO) 0.6 K/uL (0.1-1.0); MONOCYTES % (AUTO) 9.4 % (2.0-9.0); NEUTROPHILS # (AUTO) 3.5 K/uL (1.8-7.7); PLATELET COUNT (AUTO) 284 K/uL (150-450); RED BLOOD CELL COUNT(AUTO) 4.76 MIL/uL (4.50-5.90); RED CELL DISTRIBUTION WIDTH 13.5 % (11.5-14.5)
[2020-02-14 08:02] LABS: ALANINE AMINOTRANSFERASE 90 U/L (12-78); ALBUMIN 3.9 g/dL (3.4-5.0); ALKALINE PHOSPHATASE 107 U/L (46-116); ANION GAP 8 mmol/L (8-16); ASPARTATE AMINOTRANSFERASE 31 U/L (15-37); BILIRUBIN,TOTAL 0.5 mg/dL (0.1-1.0); CALCIUM, TOTAL 9.9 mg/dL (8.8-10.5); CARBON DIOXIDE 29 mmol/L (22-29); CHLORIDE 101 mmol/L (98-107); CREATININE 0.81 mg/dL (0.60-1.30); GLOMERULAR FILTR. RATE CALC > 60 mL/min (>60); GLUCOSE,RANDOM 122 mg/dL (70-110); POTASSIUM 4.3 mmol/L (3.5-5.1); SODIUM SERUM 138 mmol/L (136-145); TOTAL PROTEIN, SERUM 7.6 g/dL (6.4-8.2); UREA NITROGEN, BLOOD 16 mg/dL (7-18)
[2020-02-14 08:35] VITALS: BP 133/90
[2020-02-14] MEDS: ASPIRIN 81 MG EC TABLET PO SCH (08:37)
[2020-02-14] MEDS: THIAMINE 100 MG TABLET PO SCH (08:37)
[2020-02-14] MEDS: FOLIC ACID 1 MG TABLET PO SCH (08:37)
[2020-02-14] MEDS: OLANZapine 10 MG TABLET PO SCH ×2 (08:37→20:31)
[2020-02-14] MEDS: MULTIVITAMINS WITH MINERALS, THERAPEUTIC TABLET PO SCH (08:37)
[2020-02-14 16:08] VITALS: BP 127/79
[2020-02-14] MEDS: LORazepam 2 MG TABLET PO PRN (16:09)
[2020-02-15 00:48] VITALS: BP 125/81
[2020-02-15 08:20] VITALS: BP 130/68
[2020-02-15] MEDS: OLANZapine 10 MG TABLET PO SCH (08:30)
[2020-02-15] MEDS: MULTIVITAMINS WITH MINERALS, THERAPEUTIC TABLET PO SCH (08:30)
[2020-02-15] MEDS: FOLIC ACID 1 MG TABLET PO SCH (08:30)
[2020-02-15] MEDS: ASPIRIN 81 MG EC TABLET PO SCH (08:30)
[2020-02-15] MEDS: THIAMINE 100 MG TABLET PO SCH (08:30)
[2020-02-15] MEDS: LORazepam 2 MG TABLET PO PRN (09:15)
[2020-02-15] MEDS ORDERED: OLAN10TA3 PO (10:18)
[2020-02-15] MEDS ORDERED: ASPI-1111 PO (10:19)
== END 2020-02-15 12:00 | disposition home or self-care (01) | DRG 750 ==
LOC: EDBD 11:20 → EMS 11:20 → B3A 18:03
DX: F20.0 Paranoid schizophrenia (principal); F15.10 Other stimulant abuse, uncomplicated; D72.819 Decreased white blood cell count, unspecified; E87.1 Hypo-osmolality and hyponatremia; E87.6 Hypokalemia; F10.10 Alcohol abuse, uncomplicated; K59.00 Constipation, unspecified; M62.82 Rhabdomyolysis; R45.851 Suicidal ideations; Z66 Do not resuscitate; Z20.828 Contact with and (suspected) exposure to other viral communicable diseases; Z79.899 Other long term (current) drug therapy
CPT/HCPCS: 51701; 70450; 82948; 83036; 83735; 84439; 84443; 87081; 87426; 93005; G0480; G0481